=== PATIENT | female | born 1945 | race Caucasian/White ===

== ENCOUNTER 2016-10-08 20:50 | Emergency (ER) | payer MEDICARE, OTHER ==
[2016-10-08 20:59] VITALS: BP 122/78
--- NOTE | 2016-10-08 21:11 | ED Physician Documentation ---
PD HPI HEAD INJURY - Stated complaint Stated Complaint: HEAD INJURY - Chief complaint Chief Complaint: Trauma Hd/Nk - History obtained from History obtained from: Patient - History of Present Illness Mechanism of head injury: Other (She stood up and hit her forehead on a trellis gardening at 730 p.m. There was no loss of consciousness, no headache, she is not anticoagulated. Tetanus is up-to-date.) Review of Systems Eyes: denies: Loss of vision, Decreased vision, Photophobia Ears: denies: Loss of hearing, Ear pain Nose: denies: Rhinorrhea / runny nose, Congestion, Epistaxis PD PAST MEDICAL HISTORY - Present Medications Home Medications: Ambulatory Orders Medication Instructions Recorded Confirmed Heart Rate Medication 10/08/16 - Allergies Allergies/Adverse Reactions: Allergies Allergy/AdvReac Type Severity Reaction Status Date / Time aspirin Allergy Hives Verified 10/08/16 20:59 NSAIDS (Non-Steroidal Allergy Unknown Verified 10/08/16 20:59 Anti-Inflamma PD ED PE NORMAL - Vitals Vital signs reviewed: Yes - General General: Alert and oriented X 3, No acute distress - HEENT HEENT: PERRL, EOMI, Other (She has a pinpoint wound mid forehead with mild underlying swelling but no bony tenderness,) - Neck Neck: Supple, no meningeal sign, No bony TTP - Neuro Neuro: Alert and oriented X 3, e marketing specialist 2-12 intact, No motor deficit, No sensory deficit, Normal speech - Psych Psych: Normal mood, Normal affect Results - Vitals Vitals: Vital Signs - 24 hr 10/08/16 20:54 Temperature 36.5 C Heart Rate 93 Respiratory 16 Rate Blood Pressure 122/78 O2 Saturation 98 Oxygen O2 Source Room air PD MEDICAL DECISION MAKING - ED course ED course: She has what seems to be a very mild head injury. She does live a significant distance from the hospital lives alone so we explored the idea of a CT. However she wanted to avoid that and found someone to stay with her tonight to check on her. Departure - Departure Disposition: 01 Home, Self Care Clinical Impression: Forehead contusion Qualifiers: Encounter type: initial encounter Qualified Code(s): S00.83XA - Contusion of other part of head, initial encounter Condition: Good Record reviewed to determine appropriate education?: Yes Instructions: ED Head Injury Closed
== END 2016-10-08 21:28 | disposition home or self-care (01) ==
LOC: ED 20:50
DX: S00.83XA Contusion of other part of head, initial encounter (principal); W22.09XA Striking against other stationary object, initial encounter
CPT/HCPCS: 99283

== ENCOUNTER 2018-10-06 11:55 | Outpatient (CLI) | payer MEDICARE, OTHER ==
--- NOTE | 2018-10-06 14:01 | Ultrasound Report ---
Reason: ATHEROSCLERATIC DZ/ATHEROSCLEROSIS Procedure Date: 10/06/2018 Accession Number: [id number] / [id number] Procedure: US - Carotid Doppler Complete CPT Code: FULL RESULT: EXAM: BILATERAL CAROTID AND VERTEBRAL ARTERY DUPLEX DOPPLER ULTRASOUND: EXAM DATE: 10/06/2018 12:57 PM CLINICAL HISTORY: Atherosclerotic disease. COMPARISON: None. TECHNIQUE: Robles-scale imaging, color Doppler, and duplex spectral Doppler were used to evaluate the carotid and vertebral arteries bilaterally. Static images were obtained. FINDINGS: No significant plaque is identified in the right or left common or internal carotid arteries. Normal antegrade flow is present in bilateral vertebral arteries. VELOCITIES (cm/sec): Right CCA mid: PSV 76 cm/sec CCA dist: PSV 62 cm/sec ICA prox: PSV 50 cm/sec, EDV 20 cm/sec ICA mid: PSV 76 cm/sec, EDV 27 cm/sec ICA dist: PSV 66 cm/sec, EDV 27 cm/sec ECA: PSV 87 cm/sec Vert: PSV 31 cm/sec ICA/CCA: 1.1 Left CCA mid: PSV 101 cm/sec CCA dist: PSV 107 cm/sec ICA prox: PSV 53 cm/sec, EDV 16 cm/sec ICA mid: PSV 77 cm/sec, EDV 25 cm/sec ICA dist: PSV 62 cm/sec, EDV 20 cm/sec ECA: PSV 69 cm/sec Vert: PSV 38 cm/sec ICA/CCA: 0.71 ICA diameter stenosis: Right: <50% by velocity and <70% by NASCET criteria. Left: <50% by velocity and <70% by NASCET criteria. IMPRESSION: 1. No significant bilateral carotid artery plaquing. 2. In the right carotid artery there are no elevated carotid artery velocities to suggest hemodynamically significant stenosis. 3. In the left carotid artery there are no elevated carotid artery velocities to suggest hemodynamically significant stenosis. 4. Normal antegrade flow is present in bilateral vertebral arteries. 5. Incidental note of a right-sided thyroid nodule measuring 1.6 x 2.0 x 1.5 cm, moderately complex, mostly solid, wider than tall, isoechoic with the gland and a well-defined border. According to the [place] [employer], this is a low-risk pattern; however, biopsy is recommended for lesions greater than 1.5 cm. General Recommendations: Stenosis =50% ICA - Follow-up ultrasound 6-12 months Stenosis <50% ICA - High Risk Patient with plaque - Follow-up ultrasound 1-2 years Normal Study but High Risk Patient - Follow-up ultrasound 3-5 years Management recommendations and diagnostic criteria are based on current IAC endorsed standards in Carotid Artery Stenosis: Robles-scale and Doppler Ultrasound Diagnosis. Validated velocity measurements with angiographic measurements and velocity criteria are extrapolated from diameter data as defined by the Society of Radiologists in Ultrasound Consensus Conference Radiology 2003; 229;340-346. RADIA
== END 2018-10-06 11:56 | disposition home or self-care (01) ==
LOC: DI 11:55
PROVIDERS: ATTEND Family Medicine
DX: I70.90 Unspecified atherosclerosis (principal)
CPT/HCPCS: 93880

== ENCOUNTER 2019-01-17 10:55 | Outpatient (CLI) | payer MEDICARE, OTHER ==
--- NOTE | 2019-01-17 14:13 | DEXA Report ---
Reason: POST MENOPAUSAL Procedure Date: 01/17/2019 Accession Number: [id number] / [id number] Procedure: DEX - Dexa Spine and/or Hip CPT Code: FULL RESULT: EXAM: Dexa Spine and/or Hip DATE: 01/17/2019 12:00 PM CLINICAL HISTORY: POST MENOPAUSAL. Mother with osteoporosis. TECHNIQUE: Dual energy x-ray absorptiometry (DXA) was performed on a [employer], an [employer] System. Regions measured are the AP Spine, femoral neck, and if needed forearm. COMPARISON: None. In accordance with the International Society for Clinical Densitometry (ISCD) guidelines, data from previous exams may be reanalyzed using current recommendations and techniques. This is done to allow a more accurate basis for comparison with the current study. FINDINGS: The data for the lumbar spine is as follows: BMD (g/cm/cm) T-SCORE Z-SCORE REGION L1 0.907 -1.9 -0.7 L2 0.952 -2.1 -0.9 L3 0.971 -1.9 -0.7 L4 0.938 -2.2 -1.0 TOTAL 0.941 -2.0 -0.8 NOTE: All evaluable vertebrae are used for classification The data for the hip is as follows: BMD (g/cm/cm) T-SCORE Z-SCORE REGION Neck 0.700 -2.4 -0.9 TOTAL 0.810 -1.6 -0.3 NOTE: The femoral neck or total proximal femur, whichever is lowest, is used for classification. IMPRESSION: THE WHO CLASSIFICATION BASED ON THE INTERNATIONAL REFERENCE STANDARD IS OSTEOPENIA, REFERENCE LEFT FEMORAL NECK. THE FRACTURE RISK IS INCREASED. RECOMMENDATION: Patients with diagnosis of osteoporosis or osteopenia should have regular bone mineral density assessment. For those eligible for Medicare, routine testing is allowed once every 2 years. Testing frequency can be increased for patients who have rapidly progressing disease or for those who are receiving medical therapy to restore bone mass. COMMENT: World Health Organization (WHO) definitions for osteoporosis and osteopenia: NORMAL BMD: T-score at -1.0 or higher, fracture risk is low OSTEOPENIA BMD: T-score between -1.0 and -2.5, fracture risk is increased. OSTEOPOROSIS BMD: T-score at -2.5 or lower, fracture risk is high. National Osteoporosis Foundation recommends: 1. Obtain adequate dietary calcium (at least 1200 mg per day) and vitamin D (400-800 international units per day). 2. Participate, as appropriate, in regular weightbearing and muscle-strengthening exercise. 3. Avoid tobacco use and reduce alcohol and caffeine intake. 4. For more detailed information see the website at www.NOF.org.
== END 2019-01-17 10:56 | disposition home or self-care (01) ==
LOC: DI 10:55
PROVIDERS: ATTEND Family Medicine
DX: M85.89 Other specified disorders of bone density and structure, multiple sites (principal); Z78.0 Asymptomatic menopausal state
CPT/HCPCS: 77080

== ENCOUNTER 2020-09-11 13:11 | Outpatient (CLI) | payer MEDICARE, OTHER ==
--- NOTE | 2020-09-11 20:12 | Ultrasound Report ---
PROCEDURE: Head or Neck Soft Tissue INDICATIONS: RT THYROID NODULE TECHNIQUE: Real-time scanning was performed of the thyroid gland, with image documentation. COMPARISON: Carotid ultrasound dated 10/06/2018 FINDINGS: Right: Thyroid lobe measures 3.9 x 1.6 x 1.7 cm, and is homogeneous in echotexture. Left: Thyroid lobe measures 4.0 x 1.3 x 1.0 cm, and is homogenous in echotexture. Isthmus: 2 mm thick. Nodule number: One Location: Right mid to inferior Size: 1.9 x 1.5 x 1.5 cm. This previously measured 2.0 x 1.6 x 1.5 cm Composition: Solid Echogenicity: Isoechoic Shape: wider than tall. Margins: Smooth Echogenic foci: None Total points: 3 ACR TI-RADS category: 3 IMPRESSION: Stable size of 1.9 cm right thyroid lobe TI-RADS 3 lesion. Follow-up as below. ACR TI-RADS definitions and recommendations: TI-RADS 1 (benign): 0 points. FNA not needed. TI-RADS 2 (not suspicious): 2 points. FNA not needed. TI-RADS 3 (mildly suspicious): 3 points. ? FNA if 2.5 cm or larger, follow up if 1.5 cm or larger (at 1, 3, and 5 years). TI-RADS 4 (moderately suspicious): 4-6 points. ? FNA if 1.5 cm or larger, follow up if 1 cm or larger (at 1, 2, 3, and 5 years). TI-RADS 5 (highly suspicious): 7 points or more. ? FNA if 1 cm or larger, follow up if 0.5 cm or larger (every year for 5 years). Reviewed by: Cody Haywood DO on 09/11/2020 7:11 PM VANIA Approved by: Cody Haywood DO on 09/11/2020 7:11 PM VANIA Station ID: [id number]
== END 2020-09-11 13:12 | disposition home or self-care (01) ==
LOC: DI 13:11
PROVIDERS: ATTEND Family Medicine
DX: E04.1 Nontoxic single thyroid nodule (principal)

== ENCOUNTER 2020-09-24 13:04 | Outpatient (CLI) | payer MEDICARE, OTHER ==
--- NOTE | 2020-09-28 13:24 | Mammography Report ---
BILATERAL DIGITAL SCREENING MAMMOGRAM 3D/2D: 09/24/2020 CLINICAL: Routine screening. Comparison is made to exams dated: 08/16/2018 mammogram, 06/13/2017 mammogram, 11/28/2016 mammogram, stereotactic biopsy, and 03/03/2016 mammogram - [facility]. There are scatt ered fibroglandular elements in both breasts. There is a biopsy clip in the right breast. No significant masses, calcifications, or other findings are seen in either breast. There has been no significant interval change. IMPRESSION: NEGATIVE There is no mammographic evidence of malignancy. A 1 year screening mammogram is recommended. This exam was interpreted at Station ID: [id number]. NOTE: For mammograms, a report in lay terms will be sent to the patient. Approximately 15% of breast malignancies will not be visualized mammographically. In the management of a palpable breast mass, a negative mammogram must not discourage biopsy of a clinically suspicious lesion. Electronically Signed By: Cristi Wesley M.D. [facility] [place]:09/24/2020 15:36:34 ACR BI-RADS Category 1: Negative 3341F PARENCHYMAL PATTERN: (A) - The breast(s) demonstrate(s) scattered fibroglandular densities. BI-RADS CATEGORY: (1) - 1 RECOMMENDATION: (ANNUAL) - Recommend routine annual screening mammography. [id number] 1 year screening LATERALITY: (B)
== END 2020-09-24 13:05 | disposition home or self-care (01) ==
LOC: DI 13:04
PROVIDERS: ATTEND Family Medicine
DX: Z12.31 Encounter for screening mammogram for malignant neoplasm of breast (principal)

== ENCOUNTER 2020-12-24 20:32 | Emergency (ER) | payer MEDICARE, OTHER ==
[2020-12-24] MEDS ORDERED: TETANUS/DIPHTHERIA/PERTUSSIS 0.5 ML SYRINGE IM ONE (21:34)
--- NOTE | 2020-12-24 21:48 | ED Physician Documentation ---
PD HPI UPPER EXT INJURY - Stated complaint Stated Complaint: RT ARM LAC - Chief complaint Chief Complaint: Laceration - History obtained from History obtained from: Patient - History of Present Illness Location: Right (74-year-old woman with unknown tetanus status had a trip and impacted her right forearm against a pick it of her stairs at home just prior to arrival and has a skin tear there.) Review of Systems Constitutional: reports: Reviewed and negative Eyes: reports: Reviewed and negative Ears: reports: Reviewed and negative Nose: reports: Reviewed and negative Throat: reports: Reviewed and negative PD PAST MEDICAL HISTORY - Past Medical History Past Medical History: Yes Cardiovascular: Other Respiratory: None Endocrine/Autoimmune: None GI: Hiatal hernia JAILER: None : None HEENT: Other Psych: None Musculoskeletal: None Derm: None - Past Surgical History Past Surgical History: Yes General: Cholecystectomy Ortho: Other HEENT: Cataracts - Allergies Allergies/Adverse Reactions: Allergies Allergy/AdvReac Type Severity Reaction Status Date / Time aspirin Allergy Hives Verified 12/24/20 20:52 NSAIDS (Non-Steroidal Allergy Unknown Verified 12/24/20 20:52 Anti-Inflamma - Social History Does the pt smoke?: No Smoking Status: Never smoker Does the pt drink ETOH?: Yes Does the pt have substance abuse?: No - Immunizations Immunizations are current?: Yes PD ED PE NORMAL - Vitals Vital signs reviewed: Yes - General General: Alert and oriented X 3, No acute distress - Extremities Extremities: Other (She is a shallow 4 cm curved skin tear over the dorsal right forearm without underlying tenderness or limited range of motion.) - Neuro Neuro: Alert and oriented X 3, Normal speech Results - Vitals Vitals: Vital Signs - 24 hr 12/24/20 20:45 Temperature 36.5 C Heart Rate 96 Respiratory 16 Rate Blood Pressure 140/91 H O2 Saturation 98 Oxygen O2 Source Room air Procedures - Laceration (location) R forearm Length in cm: 4 Wound type: Curved, Superficial Wound preparation: Irrigated copiously NS Skin layer closure: Dermabond, Steri strips Other: Tetanus booster given Departure - Departure Disposition: 01 Home, Self Care Clinical Impression: Skin tear Condition: Good Record reviewed to determine appropriate education?: Yes Instructions: ED Laceration Ext Skin Glue Comments: Note for your records that received a tetanus/diphtheria/pertussis booster today.
[2020-12-24 22:18] VITALS: BP 123/67
== END 2020-12-24 22:17 | disposition home or self-care (01) ==
LOC: ED 20:32
DX: S56.921A Laceration of unspecified muscles, fascia and tendons at forearm level, right arm, initial encounter (principal); W01.10XA Fall on same level from slipping, tripping and stumbling with subsequent striking against unspecified object, initial encounter; Z23 Encounter for immunization
CPT/HCPCS: 12002; 90471; 99282; 99283

== ENCOUNTER 2022-04-17 10:01 | Outpatient (CLI) | payer MEDICARE, OTHER ==
--- NOTE | 2022-04-18 10:46 | Mammography Report ---
BILATERAL DIGITAL SCREENING MAMMOGRAM 3D/2D: 04/17/2022 CLINICAL: Routine screening. Family history of breast cancer. Comparison is made to exams dated: 09/24/2020 mammogram, 09/24/2020 mammogram, 08/16/2018 mammogram, mammogram, and 11/28/2016 mammogram - [facility]. There are scattered areas of fibroglandular density in both breasts (category b / 25%-50% glandular t issue). There is a biopsy clip in the right breast. No significant masses, calcifications, or other findings are seen in either breast. There has been no significant interval change. IMPRESSION: NEGATIVE There is no mammographic evidence of malignancy. A 1 year screening mammogram is recommended. Based on the Tyrer Cuzick model (a risk assessment model) the patients lifetime risk is 3.4% and her 10 year risk is 0.0%. According to the ACR, ACS, and NCCN guidelines, an annual breast MRI exam nelida g with mammogram is recommended if the patients lifetime risk is 20% or greater. This exam was interpreted at Station ID: [id number]. NOTE: For mammograms, a report in lay terms will be sent to the patient. Approximately 15% of breast malignancies will not be visualized mammographically. In the management of a palpable breast mass, a negative mammogram must not discourage biopsy of a clinically suspicious lesion. Electronically Signed By: Saurabh Mcdowell M.D. acr/penrad:04/17/2022 16:10:20 ACR BI-RADS Category 1: Negative 3341F PARENCHYMAL PATTERN: (A) - The breast(s) demonstrate(s) scattered fibroglandular densities. BI-RADS CATEGORY: (1) - 1 RECOMMENDATION: (ANNUAL) - Recommend routine annual screening mammography. [id number] 1 year screening LATERALITY: (B)
== END 2022-04-17 10:02 | disposition home or self-care (01) ==
LOC: DI.S 10:01
PROVIDERS: ATTEND Family Medicine
DX: Z12.31 Encounter for screening mammogram for malignant neoplasm of breast (principal); Z80.3 Family history of malignant neoplasm of breast

== ENCOUNTER 2022-05-08 15:27 | Outpatient (CLI) | payer MEDICARE, OTHER ==
--- NOTE | 2022-05-08 20:24 | DEXA Report ---
PROCEDURE: Dexa Spine and/or Hip INDICATIONS: POST MENOPAUSAL, OSTEOPENIA TECHNIQUE: Dual energy x-ray absorptiometry (DXA) was performed on a [employer] System. Regions measur ed are the AP Spine, femoral neck, and if needed forearm. COMPARISON: 01/17/2019 FINDINGS: Lumbar Spine: Bone Mineral Density 0.917 g/cm/cm,T score -2.2, osteopenia Left Femoral Neck: Bone Mineral Density 0.748 g/cm/cm, T score -2.1, osteopenia Left Hip: Bone Mineral Density 0.754 g/cm/cm,T score -2.0, osteopenia. IMPRESSION: Osteopenia with statistically significant decrease in bone mineral density of the left hip when lory red with 01/17/2019 exam. Patients with diagnosis of osteoporosis or osteopenia should have regular bone mineral density assess ment. For those eligible for Medicare, routine testing is allowed once every 2 years. Testing frequ ency can be increased for patients who have rapidly progressing disease or for those who are receivin g medical therapy to restore bone mass. Reviewed by: Terence Alba MD on 05/08/2022 8:23 PM PST Approved by: Terence Alba MD on 05/08/2022 8:23 PM PST Station ID: [id number]
== END 2022-05-08 15:28 | disposition home or self-care (01) ==
LOC: DI 15:27
PROVIDERS: ATTEND Family Medicine
DX: M85.89 Other specified disorders of bone density and structure, multiple sites (principal); Z78.0 Asymptomatic menopausal state

== ENCOUNTER 2022-08-09 06:29 | Day surgery (SDC) | payer MEDICARE, OTHER ==
[2022-08-09] MEDS ORDERED: LACTATED RINGERS 1,000 ML IV ONE ×2 (06:32→07:56)
--- NOTE | 2022-08-09 07:04 | ANESTHESIA ---
Pre-Anesthesia VS, & Labs - Diagnosis family hx colon cancer - Procedure colonoscopy Vital Signs: Temp Pulse Resp BP Pulse Ox O2 Flow Rate 36.8 C 112 H 16 122/82 H 97 08/09/22 06:38 08/09/22 06:38 08/09/22 06:38 08/09/22 06:38 08/09/22 06:38 Height: 5 ft 6 in Weight (kg): 76 kg Body Mass Index: 27.0 BMI Classification: Overweight - NPO >8 hours Last Fluid Intake: am prep - Is Patient ?: No - Lab Results Lab results reviewed: Yes Home Medications and Allergies Home Medications: Ambulatory Orders No Known Home Medications 08/08/22 No Known Home Medications 08/08/22 Allergies/Adverse Reactions: Allergies Allergy/AdvReac Type Severity Reaction Status Date / Time aspirin Allergy Hives Verified 12/24/20 20:52 NSAIDS (Non-Steroidal Allergy Unknown Verified 12/24/20 20:52 Anti-Inflamma Anes History & Medical History - Anesthetic History Anesthesia Complications: reports: No previous complications Family history of Anesthesia Complications: Denies Family history of Malignant Hyperthermia: Denies - Medical History Cardiovascular: reports: Arrhythmia Pulmonary: reports: None Gastrointestinal: reports: GERD, Colon polyps, Cholelithiasis Urinary: reports: None Musculoskeletal: reports: Osteoarthritis, Osteopenia, Scoliosis Endocrine/Autoimmune: reports: HyPOthyroidism Blood Disorders: reports: None Skin: reports: None Smoking Status: Never smoker - Surgical History General: reports: Cholecystectomy Eyes Ears Nose Throat (EENT): reports: Cataracts, Tonsil/Adenoidectomy Gynecologic: reports: Dilation and currettage, Other Orthopedic: reports: Other Exam General: Alert, Oriented x3, Cooperative Dental: WNL Mouth Openin Fingerbreadth Neck Mobility: Normal Mallampati classification: II Thyromental Distance: 4-6 cm Respiratory: Lungs clear, Normal breath sounds, No respiratory distress Cardiovascular: Regular rate Mental/Cognitive Status: Alert/Oriented X3, Normal for patient Cognitive Status: Within normal limits Plan Anesthesia Type: Total IV Consent for Procedure(s) Verified and Reviewed: Yes Code Status: Attempt Resuscitation ASA classification: 2-Mild systemic disease Is this case an emergency?: No
[2022-08-09] MEDS ORDERED: PROPOFOL 500 MG/50 ML 500 MG/50 ML VIAL ONE (07:09)
[2022-08-09] MEDS ORDERED: MIDAZOLAM 2 MG/2 ML VIAL ONE (07:15)
[2022-08-09] MEDS ORDERED: PHENYLEPHRINE 10 MG/ML VIAL ONE (07:16)
[2022-08-09 08:21] VITALS: BP 107/67
--- NOTE | 2022-08-09 08:23 | ANESTHESIA POST OP EVALUATION ---
Anesthesia Post Eval - Post Anesthesia Eval Vitals: Last Vital Signs Temp 36.2 C L 08/09/22 08:17 Pulse 92 08/09/22 08:17 Resp 16 08/09/22 08:17 BP 107/67 08/09/22 08:17 Pulse Ox 98 08/09/22 08:17 O2 Flow Rate CV Function Including HR & BP: Stable Pain Control: Satisfactory Nausea & Vomiting: Negative Mental Status: Baseline Respiratory Status: Airway Patent Hydration Status: Satisfactory Anesthesia Complications: None
== END 2022-08-09 06:30 | disposition home or self-care (01) ==
LOC: SDS 06:29
PROVIDERS: ATTEND Surgery
DX: Z12.11 Encounter for screening for malignant neoplasm of colon (principal); Z80.0 Family history of malignant neoplasm of digestive organs; K57.30 Diverticulosis of large intestine without perforation or abscess without bleeding; K64.9 Unspecified hemorrhoids
CPT/HCPCS: G0105; J7120